=== PATIENT | male | born 1980 | race Caucasian/White ===

== ENCOUNTER 2023-12-04 14:32 | Emergency (ER) | payer SELFPAY ==
[~2023-12-04] VITALS: Ht 170.2 cm; Wt 85.0 kg
[2023-12-04] MEDS ORDERED: TETANUS, DIPHTHERIA, PERTUSSIS VAC/PF 0.5ML (>10YR OLD) IM ONE (14:45)
[2023-12-04 14:48] VITALS: O2SAT 97
[2023-12-04 16:45] VITALS: BP 138/72; PULSE 84; RESP 17; TEMP 98.1
== END 2023-12-04 16:46 | disposition home or self-care (01) ==
LOC: ER 14:58
DX: S00.83XA Contusion of other part of head, initial encounter (principal); M25.531 Pain in right wrist; I10 Essential (primary) hypertension; Y08.89XA Assault by other specified means, initial encounter; Y93.89 Activity, other specified; Y92.89 Other specified places as the place of occurrence of the external cause; Y99.8 Other external cause status
CPT/HCPCS: 73110; 70450; 90715; 90471; 99285; Z7610